=== PATIENT | female | born 1940 | race Caucasian/White ===

== ENCOUNTER → 2019-04-12 14:38 | Outpatient (CLI) | payer MEDICARE ==
[2019-04-12 17:50] LABS: BASOPHILS 0.2 % (0-2); EOSINOPHILS 1.6 % (0-7); HEMOGLOBIN 9.4 g/dL (12-16); IMMATURE GRANULOCYTES 0.2 % (0-5); MCHC 32.4 g/dL (31.0-37.0); MCV 95.7 fL (80.0-100.0); MEAN PLATELET VOLUME 9.6 fL (7.4-10.4); MONOCYTES 9.5 % (2-11); NEUTROPHILS 74.5 % (40-80); PLATELET COUNT 288 10x3/uL (130-400); RBC 3.03 10x6/uL (4.00-5.40); RDW 14.8 % (11.5-14.5); WBC 5.1 10x3/uL (4.8-10.8)
[2019-04-12 19:19] LABS: ERYTHROCYTE SEDIMENTATION RATE 62 mm/hr (0-30)
== END | disposition home or self-care (01) ==
LOC: D.LABREF 14:38
PROVIDERS: ATTEND Orthopaedic Surgery
DX: M25.571 Pain in right ankle and joints of right foot (principal)